=== PATIENT | male | born 1985 | race Caucasian/White ===

== ENCOUNTER → 2020-11-24 | Day surgery (SDC) | payer OTHER ==
[~2020-11-24] VITALS: Ht 182.9 cm; Wt 120.2 kg
[~2020-11-24] MED LIST: ADVIL200 M1 PO; DICLOFENAC PO; PERCOCET 5-3251 EACH PO; VITAMIN B-121000 MC1 PO
[2020-11-24 10:23] LABS: HCT 42.2 % (42.0-52.0); HGB 14.9 g/dl (13.2-18.0); MCH 32.9 pg (25.0-31.0); MCHC 35.3 g/dL (32.0-36.0); MCV 93.2 fL (78.0-100.0); MPV 9.9 fL (6.0-9.5); RBC 4.53 M/uL (4.70-6.00); RDW 12.2 % (11.5-14.0); WBC 4.8 K/uL (4.0-10.5)
[2020-11-24 11:35] LABS: ALBUMIN 3.7 g/dL (3.4-5.0); BILIRUBIN - TOTAL 0.3 mg/dL (0.2-1.0); CREATININE 0.87 mg/dL (0.67-1.17); GLOBULIN (CALCULATION) 3.9 g/dL; POTASSIUM 4.4 mmol/L (3.5-5.1); TOTAL PROTEIN 7.6 g/dL (6.4-8.2)
== END | disposition home or self-care (01) ==
LOC: FAS 09:36
PROVIDERS: Orthopaedic Surgery
DX: M75.41 Impingement syndrome of right shoulder (principal); M77.8 Other enthesopathies, not elsewhere classified; K21.9 Gastro-esophageal reflux disease without esophagitis; J45.909 Unspecified asthma, uncomplicated; Z87.891 Personal history of nicotine dependence; Z79.1 Long term (current) use of non-steroidal anti-inflammatories (NSAID); Z79.891 Long term (current) use of opiate analgesic; Z79.899 Other long term (current) drug therapy; Z20.822 Contact with and (suspected) exposure to COVID-19
CPT/HCPCS: 36415; 80053; J0171; J0690; J1100; J2250; J2704; J2795; J7120; U0002